=== PATIENT | male | born 1965 | race Caucasian/White ===

== ENCOUNTER 2021-03-29 02:45 | Emergency (ER) | payer BC, OTHER ==
[2021-03-29] MEDS ORDERED: TETANUS & DIPHTHERIA TOX,ADULT 0.5 ML VIAL ONE (03:54)
--- NOTE | 2021-03-29 04:40 | EDPHYS ---
Physician Documentation [facility] Name: Andrew Lan Age: 55 yrs Sex: Male : 1965 Arrival Date: 03/29/2021 Time: 02:48 Bed 7 Private MD: ED Physician Power Singh HPI: 03/29 04:31 This 55 yrs old Male presents to ER via Ambulatory with complaints of Fall Injury, pkl Laceration To Head. 04:31 The patient or guardian reports abrasion. The complaints affect the occipital scalp. pkl Context of injury: resulted from Patient hit back of head against metal and fell and hit right cheek on the floor. Onset: The symptoms/episode began/occurred just prior to arrival. Associated signs and symptoms: The patient has no apparent associated signs or symptoms, Loss of consciousness: This patient experience a loss of consciousness, that was brief. Historical: - Allergies: 03:47 No Known Allergies; bb - Home Meds: 03:47 None [Active]; bb - PMHx: 03:47 None; bb - PSHx: 03:47 None; bb - Immunization history:: Client reports having NOT received the Covid vaccine. Last tetanus immunization: unknown. - Social history:: Smoking status: Patient reports the use of cigarette tobacco products, smokes one pack cigarettes per day. Patient uses alcohol. ROS: 04:31 Eyes: Negative for injury, pain, redness, and discharge, ENT: Negative for injury, pkl pain, and discharge, Neck: Negative for injury, pain, and swelling, Cardiovascular: Negative for chest pain, palpitations, and edema, Respiratory: Negative for shortness of breath, cough, wheezing, and pleuritic chest pain, Abdomen/GI: Negative for abdominal pain, nausea, vomiting, diarrhea, and constipation, Back: Negative for injury and pain, : Negative for injury, bleeding, discharge, and swelling, MS/Extremity: Negative for injury and deformity, Skin: Negative for injury, rash, and discoloration, Neuro: Negative for headache, weakness, numbness, tingling, and seizure. Exam: 04:31 Eyes: Pupils equal round and reactive to light, extra-ocular motions intact. Lids and pkl lashes normal. Conjunctiva and sclera are non-icteric and not injected. Cornea within normal limits. Periorbital areas with no swelling, redness, or edema. 04:31 Head/face: Noted is abrasion(s), that are mild, of the occipital scalp. 04:31 ENT: Exam is negative for acute changes. 04:31 Neck: Exam negative for acute changes, obvious evidence of injury or deformity. 04:31 Chest/axilla: Exam negative for acute changes. 04:31 Cardiovascular: Rate: normal, Rhythm: regular. 04:31 Respiratory: the patient does not display signs of respiratory distress, Respirations: normal, Breath sounds: are clear throughout. 04:31 Abdomen/GI: Bowel sounds: normal, Palpation: abdomen is soft and non-tender, in all quadrants. 04:31 Back: Exam negative for acute changes. 04:31 : Exam negative for acute changes. 04:31 Musculoskeletal/extremity: Exam is negative for acute changes. 04:31 Skin: Exam negative for rash. 04:31 Neuro: Orientation: is normal, Mentation: is normal, Cranial nerves: grossly normal, Cerebellar function: is grossly normal, Motor: is normal, Sensation: is normal, Gait: is steady. Vital Signs: 03:20 BP 179 / 98; Pulse 84; Resp 20 S; Temp 98.9(O); Pulse Ox 97% on R/A; cc4 03:30 BP 164 / 89; Pulse 74; Resp 16 S; Temp 98.9; Pulse Ox 97% on R/A; Weight 88.45 kg (R); bb Height 5 ft. 7 in. (170.18 cm) (R); Pain 2/10; 03:30 BP 156 / 93; Pulse 86; Resp 20 S; Pulse Ox 97% on R/A; cc4 04:08 BP 157 / 91; Pulse 76; Resp 20 S; Pulse Ox 97% on R/A; cc4 04:45 BP 158 / 92; Pulse 78; Resp 20 S; Temp 99.1(O); Pulse Ox 98% on R/A; cc4 03:30 Body Mass Index 30.54 (88.45 kg, 170.18 cm) bb Tillar Coma Score: 03:30 Eye Response: spontaneous(4). Verbal Response: oriented(5). Motor Response: obeys cc4 commands(6). Total: 15. 04:31 Eye Response: spontaneous(4). Verbal Response: oriented(5). Motor Response: obeys pkl commands(6). Total: 15. Trauma Score (Adult): 03:30 Eye Response: spontaneous(1); Verbal Response: oriented(1); Motor Response: obeys cc4 commands(2); Systolic BP: > 89 mm Hg(4); Respiratory Rate: 10 to 29 per min(4); Najma Score: 15; Trauma Score: 12 MDM: 03:18 Patient medically screened. pkl 04:31 Data reviewed: vital signs, nurses notes. ED course: Discussed CT Scans result with pkl patient and . Advised to follow up with PCP in 2 to 3 days. To return if necessary. Patient and understood instructions. 03/29 03:39 Order name: CT Head Brain wo Cont pkl 03/29 03:39 Order name: CT Facial Bones W/O Con pkl Administered Medications: 04:00 Drug: Tetanus-Diphtheria Toxoid Adult 0.5 ml {[employer]: [employer]. Exp: cc4 09/08/2022. Lot #: [id number]. } Route: IM; Site: right deltoid; Disposition Summary: 03/29/21 04:40 Discharge Ordered Location: Home pkl Problem: new pkl Symptoms: have improved pkl Condition: Stable pkl Diagnosis - Head injury pkl Followup: pkl - With: Private Physician - When: 2 - 3 days - Reason: Re-evaluation by your physician Forms: - Medication Reconciliation Form pkl - Thank You Letter pkl - Antibiotic Education pkl - Prescription Opioid Use pkl Signatures: Dispatcher [employer] EDPower Rodriguez MD MD pkl Jamia Rosales, RN RN Soraida Viera RN RN cc4
--- NOTE | 2021-03-29 04:40 | ER ---
Nurse's Notes [facility] Name: Andrew Lan Age: 55 yrs Sex: Male : 1965 Arrival Date: 03/29/2021 Time: 02:48 Bed 7 Private MD: Diagnosis: Head injury Presentation: 03/29 03:30 Chief complaint: Patient states: he went out to the garage this morning to get ready bb for work and thinks he hit his head on a metal cabinet but he does not remember what happened he has a head wound on the back of his head, there was blood on the back of his head and on the floor. Coronavirus screen: At this time, the client does not indicate any symptoms associated with coronavirus-19. Ebola Screen: No symptoms or risks identified at this time. Initial Sepsis Screen: Does the patient meet any 2 criteria? No. Patient's initial sepsis screen is negative. Does the patient have a suspected source of infection? No. Patient's initial sepsis screen is negative. Risk Assessment: Do you want to hurt yourself or someone else? Patient reports no desire to harm self or others. Onset of symptoms was March 29, 2021. 03:30 Method Of Arrival: Ambulatory bb 03:30 Acuity: AMY 3 bb 03:30 Care prior to arrival: None. Mechanism of Injury: Fall. Trauma event details: Injury cc4 occurred: at home. Injury occurred: March 29, 2021 Injury occurred at: 02:15. Activity prior to arrival: loss of consciousness, Reports waking up on garage concrete; denies headache or nausea. Triage Assessment: 03:30 General: Appears in no apparent distress. Behavior is calm, cooperative. Pain: cc4 Complains of pain in face and scalp Pain does not radiate. Pain currently is 2 out of 10 on a pain scale. Quality of pain is described as soreness Pain began suddenly, 30 min ago. Is continuous, Alleviated by nothing. Aggravated by pressure to areas. EENT: No deficits noted. Eyes clear. Nares are clear Oral mucosa is moist. Neuro: No deficits noted. Level of Consciousness is awake, alert, obeys commands. Neuro: Oriented to person, place, time, situation. Cardiovascular: No deficits noted. Rhythm is sinus rhythm. Respiratory: No deficits noted. Airway is patent Respiratory effort is even, unlabored, Respiratory pattern is regular, symmetrical. GI: No signs and/or symptoms were reported involving the gastrointestinal system. : No signs and/or symptoms were reported regarding the genitourinary system. Derm: Skin abrasion posterior scalp near crown of head; bruise with small amount edema noted right cheek of face. Musculoskeletal: No deficits noted. Capillary refill < 3 seconds, Range of motion: intact in all extremities. Injury Description: Abrasion sustained to scalp Head injury sustained to face/ right cheek. Trauma Activation: Physician: ED Physician; Name: Dr. Singh; Notified At: 03:30; Arrived At: 03:30 Physician: General Surgeon; Name: ; Notified At: 03:30; Arrived At: Physician: Radiology; Name: ; Notified At: 03:30; Arrived At: Physician: Respiratory; Name: ; Notified At: 03:30; Arrived At: Physician: Lab; Name: ; Notified At: 03:30; Arrived At: Historical: - Allergies: 03:47 No Known Allergies; bb - Home Meds: 03:47 None [Active]; bb - PMHx: 03:47 None; bb - PSHx: 03:47 None; bb - Immunization history:: Client reports having NOT received the Covid vaccine. Last tetanus immunization: unknown. - Social history:: Smoking status: Patient reports the use of cigarette tobacco products, smokes one pack cigarettes per day. Patient uses alcohol. Screenin:30 Abuse screen: Denies threats or abuse. Nutritional screening: No deficits noted. cc4 Tuberculosis screening: No symptoms or risk factors identified. Fall Risk Fall in past 12 months (25 points). Primary Survey: 03:30 NO uncontrolled hemorrhage observed. A: Airway: patent. Breathing/Chest: Respiratory cc4 pattern: regular, Respiratory effort: spontaneous, unlabored. Circulation: Cardiac rhythm: sinus rhythm. Disability Alert. Exposure/Environment: Obvious injury(ies) are noted at this time: Abrasion noted of scalp \\T\\ posterior crown of head approximately 1" in circumference with scant dried blood noted; small amount edema noted right cheek of face with small bruise noted. Reassessment Airway Airway Patent Breathing/Chest Respiratory pattern Regular Respiratory effort Spontaneous Unlabored Circulation Heart rhythm Sinus rhythm Pulses Palpable Disability Alert. Vital Signs: 03:20 BP 179 / 98; Pulse 84; Resp 20 S; Temp 98.9(O); Pulse Ox 97% on R/A; cc4 03:30 BP 164 / 89; Pulse 74; Resp 16 S; Temp 98.9; Pulse Ox 97% on R/A; Weight 88.45 kg (R); bb Height 5 ft. 7 in. (170.18 cm) (R); Pain 2/10; 03:30 BP 156 / 93; Pulse 86; Resp 20 S; Pulse Ox 97% on R/A; cc4 04:08 BP 157 / 91; Pulse 76; Resp 20 S; Pulse Ox 97% on R/A; cc4 04:45 BP 158 / 92; Pulse 78; Resp 20 S; Temp 99.1(O); Pulse Ox 98% on R/A; cc4 03:30 Body Mass Index 30.54 (88.45 kg, 170.18 cm) bb Barton Coma Score: 03:30 Eye Response: spontaneous(4). Verbal Response: oriented(5). Motor Response: obeys cc4 commands(6). Total: 15. 04:31 Eye Response: spontaneous(4). Verbal Response: oriented(5). Motor Response: obeys pkl commands(6). Total: 15. Trauma Score (Adult): 03:30 Eye Response: spontaneous(1); Verbal Response: oriented(1); Motor Response: obeys cc4 commands(2); Systolic BP: > 89 mm Hg(4); Respiratory Rate: 10 to 29 per min(4); Najma Score: 15; Trauma Score: 12 ED Course: 02:48 Patient arrived in ED. bp1 03:18 Power Singh MD is Attending Physician. pkl 03:30 Thermoregulation: none; reports warm enough. cc4 03:30 Patient maintains SpO2 saturation greater than 95% on room air. cc4 03:30 Arm band placed on Patient placed in an exam room, on a stretcher, on pulse oximetry. bb Family accompanied patient. 03:30 Patient has correct armband on for positive identification. Bed in low position. Call cc4 light in reach. Side rails up X 1. \\T\\ bedside. lab technician on. Pulse ox on. NIBP on. 03:46 Soraida Esquivel, RN is Primary Nurse. cc4 03:46 Triage completed. bb 03:46 CT Facial Bones W/O Con Sent. cc4 03:46 CT Head Brain wo Cont Sent. cc4 03:56 CT Head Brain wo Cont In Process Unspecified. EDMS 03:56 CT Facial Bones W/O Con In Process Unspecified. EDMS 04:45 No provider procedures requiring assistance completed. cc4 04:45 IV discontinued, intact, bleeding controlled, No redness/swelling at site. Pressure cc4 dressing applied. Administered Medications: 04:00 Drug: Tetanus-Diphtheria Toxoid Adult 0.5 ml {[employer]: [employer]. Exp: cc4 09/08/2022. Lot #: [id number]. } Route: IM; Site: right deltoid; Intake: 03:30 PO: 0ml; Total: 0ml. cc4 Outcome: 04:40 Discharge ordered by . pkjamie 04:45 Discharged to home ambulatory, with cc4 04:45 Condition: stable 04:45 Discharge instructions given to patient, Instructed on discharge instructions, follow up and referral plans. Demonstrated understanding of instructions, follow-up care. 04:45 Discharge instructions given to Instructed on Demonstrated understanding of cc4 instructions, follow-up care. 04:45 Patient's length of stay was not longer than 2 hours. cc4 Signatures: Dispatcher [employer] Power Casas MD MD pkl Ballard, Brenda, IMTIAZ RN Cindy Rodriguez [facility] Soraida Esquivel, RN RN cc4 Corrections: (The following items were deleted from the chart) 06:53 05:04 Patient left the ED. cc4 cc4
[2021-03-29 05:20] VITALS: TEMP 98.9; O2SAT 97
[2021-03-29 05:23] VITALS: BP 157/91
--- NOTE | 2021-03-29 11:21 | RAD REPORT ---
EXAM DESCRIPTION: CT - Head Brain Wo Cont - 03/29/2021 6:01 am CLINICAL HISTORY: The patient is 55 years old and is Male; fall TECHNIQUE: Axial computed tomography images of the head/brain without intravenous contrast. Sagitt al and coronal reformatted images were created and reviewed. This CT exam was performed using one o r more of the following dose reduction techniques: automated exposure control, adjustment of the mA and/or kV according to patient size, and/or use of iterative reconstruction technique. COMPARISON: No relevant prior studies available. FINDINGS: Brain: Unremarkable. No hemorrhage. No significant white matter disease. No edema. Ventricles: Unremarkable. No ventriculomegaly. Bones/joints: Unremarkable. No acute skull fracture. Soft tissues: Posterior scalp swelling with hematoma near the vertex. Sinuses: Unremarkable as visualized. No acute sinusitis. Mastoid air cells: No significant mastoid fluid. IMPRESSION: 1. No intracranial hemorrhage. No acute skull fracture. 2. Posterior scalp swelling with hematoma near the vertex. Electronically signed by: Juhi Aden MD 03/29/2021 4:22 AM HOTEL MAINTENANCE TECHNICIAN Due to temporary technical issues with the PACS/Fluency reporting system, reports are being signed by the in house radiologist without review as a courtesy to ensure prompt reporting. The interpreting r adiologist is fully responsible for the content of the report.
--- NOTE | 2021-03-29 11:22 | RAD REPORT ---
EXAM DESCRIPTION: CT - Facial Bones W/ Mpr - 03/29/2021 6:01 am CLINICAL HISTORY: The patient is 55 years old and is Male; fall TECHNIQUE: Axial computed tomography images of the face without intravenous contrast. Sagittal and coronal reformatted images were created and reviewed. This CT exam was performed using one or more of the following dose reduction techniques: automated exposure control, adjustment of the mA and/o r kV according to patient size, and/or use of iterative reconstruction technique. COMPARISON: No relevant prior studies available. FINDINGS: Bones/joints: No acute fracture visualized. Soft tissues: Unremarkable. Orbits: Unremarkable. Sinuses: Mild multifocal sinus mucosal thickening. No air-fluid levels. IMPRESSION: No acute fracture visualized. Electronically signed by: Juhi Aden MD 03/29/2021 4:20 AM ELECTRONIC CALIBRATION TECHNICIAN Due to temporary technical issues with the PACS/Fluency reporting system, reports are being signed by the in house radiologist without review as a courtesy to ensure prompt reporting. The interpreting r adiologist is fully responsible for the content of the report.
== END 2021-03-29 05:04 | disposition home or self-care (01) ==
LOC: ER 02:45
DX: S01.01XA Laceration without foreign body of scalp, initial encounter (principal); W18.09XA Striking against other object with subsequent fall, initial encounter; F17.210 Nicotine dependence, cigarettes, uncomplicated; Z23 Encounter for immunization
CPT/HCPCS: 70450; 70486; 76377; 90471; 90714; 93005; 99285